=== PATIENT | female | born 1970 | race Hispanic/Latino ===

== ENCOUNTER → 2023-05-21 11:37 | Outpatient (REF) | payer OTHER, SELFPAY ==
[2023-05-21 14:52] LABS: Blood Urea Nitrogen 13 mg/dl (7-17); Calcium 8.6 mg/dl (8.4-10.2); Carbon Dioxide 23 mmol/L (22-30); Chloride 106 mmol/L (98-107); Glucose 95 mg/dl (70-99); Potassium 3.9 mmol/L (3.5-5.1); Sodium 135 mmol/L (135-145); eGFR > 60.00
[2023-05-21 15:23] LABS: TSH Reflex To Free T4 3.91 uIU/ml (0.47-4.68)
== END ==
LOC: CLINIC 11:37
PROVIDERS: ATTENDING PHYSICIAN Nurse Practitioner Adult Health
DX: I10 Essential (primary) hypertension (principal)
CPT/HCPCS: 80048; 84443

== ENCOUNTER 2023-07-07 08:48 | Emergency (ER) | payer SELFPAY ==
[2023-07-07 08:52] VITALS: BP 160/89
--- NOTE | 2023-07-07 09:15 | ED.GENMED ---
History of Present Illness
General
Chief Complaint: Cold/Flu/URI Symptoms
Source: patient
Exam Limitations: none
Time Seen by Provider: 07/07/23 08:57
Nursing documentation reviewed up to this point in time: agreed with
Travel History
Have you had any contact with someone who has COVID-19?: No
Do you have any symptoms of coronavirus? Fever > 100 degrees, chills, cough, shortness of breath, sore throat, loss of taste or smell, muscle aches, or headache?: No
History of Present Illness
History of Present Illness:
53-year-old female presenting to the emergency department today with concerns of intermittent fever over the past 2 days left-sided ear pain and sore throat. She has been taking some at home [id number] medications help with symptoms has had
some trouble swallowing but has been able to tolerate by mouth. Denies any chest pain shortness of breath did have a mild cough initially.
Past History
Past History
ED Past Medical History: Other (Endometriosis) and Other (migraine h/a); Negative Asthma, HTN, Hypercholesterolemia or NIDDM
ED Past Surgical History: Gynecological (Laparoscopy)
Social History
Tobacco: Non-smoker
Alcohol: None
Drug: None
Personal:
Living: with family
Employment: Other (homemaker)
Family History
Family History: Other (Nonsignificant)
Review of Systems
Review of Systems
Allergies reviewed?: Yes
All Other Systems: ROS reviewed and negative except as documented in HPI and ROS
Phy Exam
Physical Exam
Physical Exam:
GENERAL: Alert , in no apparent distress
EYE: pupils equal and reactive
NECK: Supple, no significant adenopathy.
ENT: Mild swelling to the tonsils bilaterally uvula midline small amount of exudate. Effusion to the left ear but no obvious bulging redness, no outer ear abnormalities no tenderness to the mastoid o/p clr, mmm.
CARDIAC: Regular rate and rhythm .
LUNGS: Clear breath sounds bilaterally, no acute respiratory distress, no wheezes/rales/rhonchi
ABDOMEN: Soft, without focal tenderness, no r/g, no cvat
NEUROLOGICAL: Alert and oriented, no focal neuro deficits
SKIN: Warm and dry, skin intact.
MUSCULOSKELETAL: No edema, well perfused.
PSYCH: Normal and appropriate interaction.
Course
Orders/Labs/Results
Orders:
Orders
07/07/23 09:13
Amoxicillin 875 mg/Clav 125 mg [Augmentin 875 mg/125 mg] 1 tablet PO NOW STA
Dexamethasone [Decadron] 10 mg PO NOW STA
Vital Signs
Initial and Last Documented VS:
Initial Vital Signs
Temp Pulse Resp BP Pulse Ox
98.7 F 82 18 160/89 100
07/07/23 08:52 07/07/23 08:52 07/07/23 08:52 07/07/23 08:52 07/07/23 08:52
Last Documented Vital Signs
Temp Pulse Resp BP Pulse Ox
98.7 F 82 18 160/89 100
07/07/23 08:52 07/07/23 08:52 07/07/23 08:52 07/07/23 08:52 07/07/23 08:52
MDM/Problems Addressed
MDM/Problems Addressed:
51-year-old female presenting to the emergency department today with concerns of throat discomfort and left-sided ear discomfort over the past few days with intermittent fevers at home. Here patient is afebrile she claims that she did take an
antipyretic earlier today. Her ear does have an effusion but no obvious bulging does have swollen tonsils bilaterally with exudate potentially consistent with strep throat. Patient was given a steroid to help with inflammation but she does have a
grossly patent airway and is tolerating secretions well no shortness of breath no chest pain. Patient was written for antibiotics for potential strep coverage but otherwise advised for close outpatient follow-up. Return precautions given.
*Critical Care Note
Total Time (30-74mins, 75-104mins- exclusive of procedures): Not Applicable
ED Attending Note
-
Portions of this chart may have been created with voice recognition software.� Occasional wrong word or��sound alike� substitutions may have occurred due to the inherent limitations of voice recognition software.
Discharge Plan
Departure
Patient Disposition: Home (Routine Discharge)
Date of Disposition: 07/07/23
Time of Disposition: 09:17
Patient with high blood pressure during this ER visit?: No
Condition: Good
Covid-19: Not Applicable
Discharge Problem:
Ear pain, Acute tonsillitis
Instructions: Sore Throat, Adult (DC)
Prescriptions:
New
fluticasone propionate [Flonase Allergy Relief] 50 mcg/actuation spray,suspension
1 spray intranasal BID Qty: 16 0RF
amoxicillin-pot clavulanate 875-125 mg tablet
1 tab PO BID 7 Days Qty: 14 0RF
No Action
famotidine
20 mg PO DAILY
iron
350 mg PO DAILY
cephalexin 500 mg capsule
1,000 mg PO BID 7 Days Qty: 28 0RF
Referrals:
Amy Love MD [Active] - Follow up in 10 days
Activity Restrictions/Additional Instructions:
Review to the emergency department today with concerns of throat discomfort and ear pain. Please take the prescribed antibiotic twice daily over the next week as well as the Flonase 2 sprays each nostril twice daily. Return to the emergency
department any worsening, new or concerning symptoms.
Interventions
Interventions:
*ED COVID-19 Vaccine History Last Done: 07/07/23 08:52
Discharge Date and Time
Print Language: CROATIAN
[2023-07-07] MEDS: DECADRON 10 MG PO (09:25)
[2023-07-07] MEDS: AUGMENTIN 875 MG/125 MG 1 TABLET PO (09:25)
== END 2023-07-07 09:59 | disposition home or self-care (01) ==
LOC: EMR 08:48
PROVIDERS: EMERGENCY PHYSICIAN Emergency Medicine
DX: H92.02 Otalgia, left ear (principal); J03.90 Acute tonsillitis, unspecified
CPT/HCPCS: 99283

== ENCOUNTER → 2023-09-19 11:03 | Outpatient (REF) | payer OTHER, SELFPAY ==
[2023-09-19 16:21] LABS: Blood Urea Nitrogen 14 mg/dl (7-17); Calcium 9.8 mg/dl (8.4-10.2); Carbon Dioxide 28 mmol/L (22-30); Chloride 105 mmol/L (98-107); Glucose 109 mg/dl (70-99); Potassium 3.6 mmol/L (3.5-5.1); Sodium 138 mmol/L (135-145); eGFR > 60.00
== END ==
LOC: CLINIC 11:03
PROVIDERS: ATTENDING PHYSICIAN Nurse Practitioner Adult Health
DX: I10 Essential (primary) hypertension (principal)
CPT/HCPCS: 36415; 80048

== ENCOUNTER → 2024-04-30 08:58 | Outpatient (REF) | payer OTHER, SELFPAY ==
[2024-04-30 11:42] LABS: Hematocrit 42.3 % (37.0-47.0); Hemoglobin 13.9 g/dL (12.0-16.0); Mean Corp Hgb Conc. 32.9 g/dL (33.0-37.0); Mean Corpuscular Hgb 29.3 pg (27.0-31.0); Mean Corpuscular Volume 89.2 fL (81.0-99.0); Mean Platelet Volume 10.5 fL (7.4-10.4); Platelet Count 361 10^3/uL (130-400); Red Blood Cell Count 4.74 10^6/uL (4.20-5.40); Red Cell Dist. Width 13.1 % (11.5-14.5); White Blood Cell Count 7.8 10^3/uL (4.8-10.8)
[2024-04-30 12:12] LABS: Glycohemoglobin (HgbA1c) 6.1 % (4.0-5.6)
[2024-04-30 12:56] LABS: ALT (SGPT) 21 U/L (0-35); AST (SGOT) 22 U/L (14-36); Albumin 4.6 g/dl (3.5-5.0); Alkaline Phosphatase 70 U/L (38-126); Blood Urea Nitrogen 15 mg/dl (7-17); Calcium 9.8 mg/dl (8.4-10.2); Carbon Dioxide 24 mmol/L (22-30); Chloride 101 mmol/L (98-107); Glucose 117 mg/dl (70-99); HDL Cholesterol 53 mg/dl; LDL Cholesterol, Calculated 165 mg/dl; Potassium 4.3 mmol/L (3.5-5.1); Sodium 137 mmol/L (135-145); Total Bilirubin 0.6 mg/dl (0.2-1.3); Total Cholesterol 258 mg/dl (50-199); Total Protein 7.6 g/dl (6.3-8.2); Triglyceride 201 mg/dl (10-149); Very Low Density Lipoprotein 40 mg/dl (0-30); eGFR > 60.00
== END ==
LOC: CLINIC 08:58
PROVIDERS: ATTENDING PHYSICIAN Nurse Practitioner Adult Health
DX: I10 Essential (primary) hypertension (principal); D50.0 Iron deficiency anemia secondary to blood loss (chronic); R73.03 Prediabetes
CPT/HCPCS: 36415; 80053; 80061; 83036; 85027

== ENCOUNTER → 2024-09-22 08:21 | Outpatient (REF) | payer OTHER, SELFPAY | LOC: CLINIC 08:21 | PROVIDERS: ATTENDING PHYSICIAN Nurse Practitioner Adult Health | DX: Z12.31 Encounter for screening mammogram for malignant neoplasm of breast (principal) | CPT/HCPCS: 77063; 77067 ==

== ENCOUNTER → 2024-09-27 12:04 | Outpatient (REF) | payer OTHER, SELFPAY ==
[2024-09-27 15:40] LABS: Blood Urea Nitrogen 20 mg/dl (7-17); Carbon Dioxide 27 mmol/L (22-30); Chloride 107 mmol/L (98-107); Glucose 122 mg/dl (70-99); Magnesium 2.1 mg/dl (1.6-2.3); Potassium 4.1 mmol/L (3.5-5.1); Sodium 143 mmol/L (135-145); eGFR > 60.00
== END ==
LOC: CLINIC 12:04
PROVIDERS: ATTENDING PHYSICIAN Student in an Organized Health Care Education/Training Program
DX: R60.0 Localized edema (principal)
CPT/HCPCS: 36415; 80048; 83735

== ENCOUNTER → 2024-10-07 16:31 | Outpatient (REF) | payer OTHER, SELFPAY | LOC: RCS 16:31 | PROVIDERS: ATTENDING PHYSICIAN Student in an Organized Health Care Education/Training Program | DX: R60.0 Localized edema (principal) | CPT/HCPCS: 93306 ==

== ENCOUNTER → 2024-12-01 08:34 | Outpatient (REF) | payer OTHER, SELFPAY ==
[2024-12-01 09:50] LABS: Hematocrit 40.3 % (37.0-47.0); Hemoglobin 13.4 g/dL (12.0-16.0); Mean Corp Hgb Conc. 33.3 g/dL (33.0-37.0); Mean Corpuscular Volume 88.2 fL (81.0-99.0); Nucleated Red Blood Cells % 0 %; Platelet Count 376 10^3/uL (130-400); Red Cell Dist. Width 13.1 % (11.5-14.5)
[2024-12-01 10:29] LABS: ALT (SGPT) 22 U/L (0-35); AST (SGOT) 21 U/L (14-36); Albumin 4.4 g/dl (3.5-5.0); Alkaline Phosphatase 74 U/L (38-126); Blood Urea Nitrogen 10 mg/dl (7-17); Calcium 9.3 mg/dl (8.4-10.2); Carbon Dioxide 26 mmol/L (22-30); Chloride 105 mmol/L (98-107); Glucose 119 mg/dl (70-99); Potassium 3.9 mmol/L (3.5-5.1); Sodium 137 mmol/L (135-145); Total Protein 7.4 g/dl (6.3-8.2); eGFR > 60.00
[2024-12-01 10:31] LABS: C-Reactive Protein 9.60 mg/L (0.0-10.00)
[2024-12-01 10:46] LABS: Glycohemoglobin (HgbA1c) 6.5 % (4.0-5.6)
[2024-12-01 11:06] LABS: Ferritin 19.4 ng/ml (11.1-264.0)
[2024-12-02 16:01] LABS: Rheumatoid Agglutinin Less Than 10 IU (<10 IU)
[2024-12-03 17:26] LABS: CCP Antibody IgG/IgA 3 Units (0-19)
== END ==
LOC: HWLAB 08:34
PROVIDERS: ATTENDING PHYSICIAN Nurse Practitioner Adult Health; REFERRING PHYSICIAN Student in an Organized Health Care Education/Training Program
DX: M25.50 Pain in unspecified joint (principal); I10 Essential (primary) hypertension; R73.03 Prediabetes
CPT/HCPCS: 36415; 80053; 82728; 83036; 85025; 85652; 86140; 86200; 86430

== ENCOUNTER → 2025-03-10 11:00 | Outpatient (REF) | payer OTHER, SELFPAY ==
[2025-03-10 12:16] LABS: Glycohemoglobin (HgbA1c) 6.5 % (4.0-5.9)
[2025-03-10 12:17] LABS: ALT (SGPT) 21 U/L (0-35); AST (SGOT) 22 U/L (14-36); Albumin 4.3 g/dl (3.5-5.0); Alkaline Phosphatase 65 U/L (38-126); Blood Urea Nitrogen 14 mg/dl (7-17); Calcium 9.5 mg/dl (8.4-10.2); Carbon Dioxide 26 mmol/L (22-30); Chloride 108 mmol/L (98-107); Glucose 98 mg/dl (70-99); HDL Cholesterol 46 mg/dl; LDL Cholesterol, Calculated 138 mg/dl; Potassium 4.1 mmol/L (3.5-5.1); Sodium 140 mmol/L (135-145); Total Protein 7.8 g/dl (6.3-8.2); Very Low Density Lipoprotein 48 mg/dl (0-30); eGFR > 60.00
== END ==
LOC: CLINIC 11:00
PROVIDERS: ATTENDING PHYSICIAN Nurse Practitioner Adult Health
DX: I10 Essential (primary) hypertension (principal); E11.9 Type 2 diabetes mellitus without complications; E78.2 Mixed hyperlipidemia
CPT/HCPCS: 36415; 80053; 80061; 83036